=== PATIENT | male | born 1965 | race Hispanic/Latino ===

== ENCOUNTER 2018-08-18 16:21 | Inpatient (IN) ==
--- NOTE | 2018-08-18 16:40 | PDOC ---
Gen Adult / Medical Screen HPI - General Chief Complaint: General Medical Stated Complaint: DIZZY, FEELS WEIRD, NOT SLEEPING, DIARRHEA Date Seen by Provider: 08/18/18 Time Seen by Provider: 16:25 Source: POSITIVE: Patient, Spouse Exam Limitations: POSITIVE: No limitations Nurse's Notes Reviewed & Considered: Yes - Indicators Temperature Between 95 and 101 Degrees: Yes Respirations Between 12 and 20: Yes Blood Pressure Between 100-165 (sys) and 60-100 (lindsey): Yes Pulse Range Between 60-105 (100 for age > 60 years): Yes Severe Pain (Greater than 5/10 Reported): No Chest or Abdominal Pain: No Inability to Walk: No Pt Reports Active High Risk Cond. (TB/Hepatitis/HIV/Chemo): No Abnormal Mental Status: Yes (patient is confused and oriented to person and place) - History of Present Illness Initial Comments: This is a well-developed, well-nourished, 52-year-old male, who is originally f [facility], complaining of confusion, headache, chills and sweats, body aches, and a diabetic foot ulcer on his MTP joint first toe left foot. His foot ulcer he has been treating with [id number] medications for approximately one year according to my phone conversation with his . Patient has not been taking his metformin and 2 days ago his blood sugars were over 350. He began taking his metformin again and presents today with blood sugar of 198. Patient denies any sore throat, no chest pain or shortness of breath, no cough, no nausea or vomiting, but he does have diarrhea every other day. He denies any dysuria or hematuria. Patient is presently in [employer] working at the [employer] and he resides in [place]. Patient is lives in the [facility] approximately 20 years. Body Location Affected: REPORTS: Head Timing: REPORTS: Unknown Duration: Unknown Similar Symptoms Previously: No Recent Care Received: REPORTS: Denies Any Prior Injuries Related to Current Complaint?: No - Patient Home Medications Home Medications: Home Medications Ibuprofen [Advil] 400 mg PO PRN PRN 08/18/18 metFORMIN Tab [Glucophage Tab] 1,000 mg PO BID 08/18/18 - Patient Allergies Allergies/Adverse Reactions: Allergies Allergy/AdvReac Type Severity Reaction Status Date / Time No Known Allergies Allergy Verified 08/18/18 16:23 Past Medical History - heen HEENT History: Denies History Cardiovascular History: Denies History Respiratory History: Denies History Gastrointestinal History: Denies History Genitourinary History: Denies History Endocrine History: Type 2 Diabetes (oral) Musculoskeletal History: Arthritis, Gout Prosthesis or Implant: No Neurological History: Denies History Blood Disorders: Denies History Psychiatric History: Denies History Male Reproductive History: Denies History Cancer History: Denies History In Past Year Been Physically Harmed or Verbally Threatened: No History of MDRO: No Tobacco Use: Never Smoker In the Past 12 Months, Have Used or Abuse Any Substance: None Previous Surgical History: No Significant Family History: No pertinent family hx ROS - Limitations ROS Limitations: Mental Impairment (Patient is confused and unsure of timeline and chain of events that led him here to the emergency room. His indicates that his confusion has been increasing over the last several days.) Constitution: REPORTS: Chills, Diaphoresis Cardiovascular: REPORTS: Denies Cardiac Symptoms Respiratory: REPORTS: Denies Resp Symptoms Neurological: REPORTS: Confusion, Headache Gastrointestinal: REPORTS: Diarrhea Endocrine: REPORTS: Elevated Glucose Musculoskeletal: REPORTS: Joint Pain (Left first toe MTP joint with diabetic foot ulcer.), Muscle Aches Genitourinary: REPORTS: Denies Symptoms Eyes: REPORTS: Denies Symptoms ENT: REPORTS: Denies Symptoms Skin: REPORTS: Denies Skin Symptoms Lympathic: REPORTS: Denies Lympathic Symptoms Immunologic: POSITIVE: Denies Symptoms Psychiatric: POSITIVE: Confusion Gen Adult/Medical Screen Exam - General Appearance General Appearance: POSITIVE: Cooperative, No Acute Distress, No Evidence of Trauma, Lethargic - HEENT HEENT: POSITIVE: Head Inspection Nml, Eyes Inspection Nml, Ears Inspection Nml, Nose Inspection Nml, Oral/Dental Inspect. Nml, Pharynx Inspect. Nml, PERRL, EOMI - Pupils Pupil Size: 3 mm: Bilateral - Neck Neck: POSITIVE: Normal Inspection - Respiratory Respiratory: POSITIVE: No Respiratory Distress, Breath Sounds Normal, Chest Non- Tender - Cardiovascular Cardiovascular: POSITIVE: Regular Rate & Rhythm, No Murmur, No Gallop, PMI Normal Peripheral Pulses: Radial (L): 4+ - Abdomen Abdomen: Soft: (All Quadrants), Normal Bowel Sounds: (All Quadrants), Denies Tenderness: (All Quadrants), No Splenomegaly: (All Quadrants), No Hepatomegaly: (All Quadrants), No Guarding: (All Quadrants), No Rebound: (All Quadrants), No Palpable Pulse: (All Quadrants), No Palpabale Mass: (All Quadrants), No Diste ntion: (All Quadrants), No Rigidity: (All Quadrants) - Back Back: POSITIVE: Normal Inspection - Neurological / Psychological Mental Status: POSITIVE: Slow Response to Command Orientation: POSITIVE: Disoriented to Time Reflexes: Patellar (R): 3+, Patellar (L): 3+, Radial (R): 4+, Radial (L): 4+ - Skin Skin: POSITIVE: Normal Color, Warm, Dry, No Rash - Extremities Extremity: Non-Tender: (RUE), (LUE), (RLE), Normal ROM: (All Extremities), Normal Inspection: (RLE), (LUE), (RUE), Pelvis Stable: (All Extremities), Normal Tendon Exam: (All Extremities), Edema / Swelling: (LLE), Tender: (LLE), Signs / Symptoms of Infection Present: (LLE) (left first MTP joint), Erythema: (LLE), Joint Effusion: (LLE) Gen Adlt/Medical Scrn Progress - Results Reviewed by me Xrays/CTs/US Reviewed by me: Yes Discussed with Radiologist: Yes Lab Results Reviewed by Me: Yes CBC and BMP: 08/18/18 16:40 08/18/18 16:40 Lab Results:: Laboratory Results 08/18/18 08/18/18 08/18/18 16:40 16:40 16:40 WBC 6.71 RBC 5.58 Hgb 16.1 Hct 47.4 MCV 84.9 MCH 28.9 MCHC 34.0 RDW Std Deviation 39.7 RDW Coeff of Arturo 12.8 Plt Count 246 MPV 10.9 Immature Gran % (Auto) 0.1 Neut % (Auto) 63.0 Lymph % (Auto) 29.5 [place] % (Auto) 5.1 Eos % (Auto) 1.9 Baso % (Auto) 0.4 Immature Gran # (Auto) 0.01 Neut # (Auto) 4.22 Lymph # (Auto) 1.98 [place] # (Auto) 0.34 Eos # (Auto) 0.13 Baso # (Auto) 0.03 WBC Morphology Comment Normal morphology Plt Morphology Comment Normal morphology RBC Morph Comment Normal morphology VBG pH VBG pCO2 VBG HCO3 VBG Base Excess Sodium 138 Potassium 4.2 Chloride 105 Carbon Dioxide 23 Anion Gap 10 BUN 28 H Creatinine 1.2 Estimated GFR > 60 BUN/Creatinine Ratio 23.33 H Glucose 174 H Mean Blood Glucose 253.660 Hemoglobin A1c 10.20 H Calculated Osmolality 295.0 H Lactic Acid Uric Acid Calcium 9.4 Magnesium 1.7 Total Bilirubin 0.6 AST 51 ALT 49 Alkaline Phosphatase 61 C-Reactive Protein < 0.5 NT-Pro-B Natriuret Pep 18.4 Total Protein 7.6 Albumin 4.6 Globulin 3.0 Albumin/Globulin Ratio 1.50 Ur Collection Type Urine Color Urine Clarity Urine pH Ur Specific [place] Urine Protein Urine Glucose (UA) Urine Ketones Urine Occult Blood Urine Nitrate Urine Bilirubin Urine Urobilinogen Ur Leukocyte Esterase Ur Culture Indicated? 08/18/18 08/18/18 08/18/18 16:40 16:40 17:02 WBC RBC Hgb Hct MCV MCH MCHC RDW Std Deviation RDW Coeff of Arturo Plt Count MPV Immature Gran % (Auto) Neut % (Auto) Lymph % (Auto) [place] % (Auto) Eos % (Auto) Baso % (Auto) Immature Gran # (Auto) Neut # (Auto) Lymph # (Auto) [place] # (Auto) Eos # (Auto) Baso # (Auto) WBC Morphology Comment Plt Morphology Comment RBC Morph Comment VBG pH 7.37 VBG pCO2 42 L VBG HCO3 24 VBG Base Excess -1 Sodium Potassium Chloride Carbon Dioxide Anion Gap BUN Creatinine Estimated GFR BUN/Creatinine Ratio Glucose Mean Blood Glucose Hemoglobin A1c Calculated Osmolality Lactic Acid 0.8 Uric Acid 11.7 H Calcium Magnesium Total Bilirubin AST ALT Alkaline Phosphatase C-Reactive Protein NT-Pro-B Natriuret Pep Total Protein Albumin Globulin Albumin/Globulin Ratio Ur Collection Type Urine Color Urine Clarity Urine pH Ur Specific [place] Urine Protein Urine Glucose (UA) Urine Ketones Urine Occult Blood Urine Nitrate Urine Bilirubin Urine Urobilinogen Ur Leukocyte Esterase Ur Culture Indicated? 08/18/18 17:47 WBC RBC Hgb Hct MCV MCH MCHC RDW Std Deviation RDW Coeff of Arturo Plt Count MPV Immature Gran % (Auto) Neut % (Auto) Lymph % (Auto) [place] % (Auto) Eos % (Auto) Baso % (Auto) Immature Gran # (Auto) Neut # (Auto) Lymph # (Auto) [place] # (Auto) Eos # (Auto) Baso # (Auto) WBC Morphology Comment Plt Morphology Comment RBC Morph Comment VBG pH VBG pCO2 VBG HCO3 VBG Base Excess Sodium Potassium Chloride Carbon Dioxide Anion Gap BUN Creatinine Estimated GFR BUN/Creatinine Ratio Glucose Mean Blood Glucose Hemoglobin A1c Calculated Osmolality Lactic Acid Uric Acid Calcium Magnesium Total Bilirubin AST ALT Alkaline Phosphatase C-Reactive Protein NT-Pro-B Natriuret Pep Total Protein Albumin Globulin Albumin/Globulin Ratio Ur Collection Type Clean catch urine Urine Color Yellow Urine Clarity Clear Urine pH 5.5 Ur Specific [place] 1.015 Urine Protein Negative Urine Glucose (UA) Negative Urine Ketones 15 Urine Occult Blood Negative Urine Nitrate Negative Urine Bilirubin Negative Urine Urobilinogen 0.2 Ur Leukocyte Esterase Negative Ur Culture Indicated? Culture not set - Patient's Progress Pain Medication Addressed: POSITIVE: Yes Re-Examine Time: 19:30 Status: POSITIVE: Improved - Consult Consult (If Yes, Name of Consulting MD & Time Called): Yes (Dr Borrego 1915hrs, Dr Wilkes 1920hrs, Dr. Souza, 1845hrs.) Consulting MD will see pt:: POSITIVE: [facility] Admit Counseled: POSITIVE: Patient, Family, RE: Lab Results, RE: Radiology Results, RE: DX, RE: Need for F/U Patient Care Time - Estimated PCT Patient Care Time (In Minutes): 60 Vital Signs - Recent Vital Signs Vital Signs: Vital Signs (Last 8 hours) Temp Pulse Resp BP Pulse Ox 08/18/18 16:22 97.6 F 77 18 125/77 96 - VS Reviewed Vital Signs Reviewed: Yes Discharge Clinical Impression: Wound infection, Gout, Hyperglycemia Discharge Disposition: Admit to Inpatient Condition: Stable Follow Up With: NONE,NONE [Primary Care Provider] - Date Decision to Admit to Inpatient: 08/18/18 Time Decision to Admit to Inpatient: 19:31
[2018-08-18] MEDS ORDERED: KETOROLAC 15 MG/1 ML VIAL IVP ONE (16:49)
[2018-08-18] MEDS ORDERED: ONDANSETRON 4 MG/2 ML VIAL IVP ONE (16:49)
[2018-08-18] MEDS ORDERED: Sodium Chloride 0.9% 1,000 ML PRIMARY IV ONE (16:49)
[2018-08-18 16:59] LABS: BASOPHILS # (AUTO) 0.03 10*3/UL; BASOPHILS % (AUTO) 0.4 % (0-1); EOSINOPHILS # (AUTO) 0.13 10*3/UL; EOSINOPHILS % (AUTO) 1.9 % (0-8); Hematocrit [HCT] 47.4 % (42.0-52.0); Hemoglobin [HGB] 16.1 g/dL (14.0-18.0); LYMPHOCYTES # (AUTO) 1.98 10*3/uL; MEAN CORPUSCULAR HEMOGLOBIN 28.9 PG (27-31); MEAN CORPUSCULAR VOLUME 84.9 FL (80-90); MEAN PLATELET VOLUME 10.9 FL (7.4-12.2); MONOCYTES # (AUTO) 0.34 10*3/UL (0.3-0.8); MONOCYTES % (AUTO) 5.1 % (5-15); NEUTROPHILS # (AUTO) 4.22 10*3/UL; RED BLOOD COUNT 5.58 10^6/uL (4.70-6.10)
[2018-08-18 17:08] LABS: VENOUS PH 7.37 (7.32-7.42)
[2018-08-18 17:09] LABS: BLOOD UREA NITROGEN 28 mg/dL (7-22); BUN/CREATININE RATIO 23.33 (6-20); SERUM ALBUMIN 4.6 g/dL (3.5-4.8)
--- NOTE | 2018-08-18 17:33 | DI ---
CT HEAD SCAN WITHOUT IV CONTRAST, 08/18/2018 4:49 PM : Clinical History: Confusion. Previous Exam: None at this facility. Technique: Performed from the foramen magnum to vertex without IV contrast. Contrast Volume: None. 4th Ventricle: Normal. 3rd Ventricle: Normal for age. Lateral Ventricles: Normal for age. Cerebrum: Normal. No acute hemorrhagic or bland infarct. Cerebellum: Normal. No cerebellopontine angle mass. Brainstem: Normal. Atrophy: Mild cerebellar and cerebral atrophy. Extracerebral Mantles/Midline Shift: No extracerebral mantle or dural lesion. No midline shift. Sinuses: Normal. Skull: Intact. READIN. No evidence of an acute hemorrhagic or bland infarct or other parenchymal abnormality. 2. Mild cerebellar and cerebral atrophy.
[2018-08-18 17:40] LABS: PLATELET MORPHOLOGY COMMENT NORMAL MORPHOLOGY (NORM); RBC MORPHOLOGY COMMENT NORMAL MORPHOLOGY (NORM); WBC MORPHOLOGY COMMENT NORMAL MORPHOLOGY (NORM)
--- NOTE | 2018-08-18 17:41 | DI ---
PA /LATERAL CHEST, 08/18/2018 4:49 PM : Clinical History: Chills. Sweats. Previous Exam: None at this facility. Soft Tissues: No acute soft tissue or bony abnormality. Heart: Normal heart. Lungs: No infiltrate or effusion. Mediastinum: Normal mediastinum. Nodules: No pulmonary nodules. Bones: Normal. Reading: Normal chest x-ray.
[2018-08-18] MEDS ORDERED: MECLIZINE 25 MG CHEWABLE TABLET PO ONE (18:07)
--- NOTE | 2018-08-18 18:13 | DI ---
LEFT FOOT, 08/18/2018 4:49 PM: Clinical History: wound infection MTP 1st toe Comparison Study: None at this facility. Views: 3 views. Soft Tissues: There is soft tissue swelling over the medial side of the foot at the first metatarsoph alangeal joint. No radiopaque foreign body or soft tissue gas is present. Joints: There is complete obliteration of the first metatarsal phalangeal joint space. The remaining joint spaces are intact. Bone: No fracture or dislocation. Erosive changes have developed in the distal head of the first meta tarsal bone medially and laterally as well as in the lateral margin of the base of the proximal phala nx of the first toe. There are some soft tissue calcifications at the site of the erosions and tophac eous gout cannot be excluded. On the AP projection, periosteal new bone formation is present on the m edial surface of the proximal phalanx of the great toe. Erosive changes are present in the medial ant e of the distal head of the proximal phalanx of the great toe. Subchondral cystic change is present i n the base of the proximal phalanx of the second toe. The remainder of the foot exam is unremarkable. Readin. Soft tissue swelling medial to the first metatarsophalangeal joint in that joint shows complete o bliteration of the joint space. Erosive changes with suggestion of "overhanging" edges are present in the first metatarsophalangeal joint and these erosive changes show some soft tissue calcifications. Tophaceous gout cannot be excluded. 2. Periosteal new bone formation is present in the medial surface of the proximal phalanx of the gre at toe without evidence of a definite fracture. In view of the history of a wound infection, osteomye litis must also be considered.
[2018-08-18 18:53] LABS: BILIRUBIN,URINE NEGATIVE (NEG); CLARITY,URINE CLEAR (CLEAR); COLOR,URINE YELLOW (Y); GLUCOSE, URINE (UA) NEGATIVE (NEG); OCCULT BLOOD,URINE NEGATIVE (NEG); PH,URINE 5.5 (5.0-8.5); PROTEIN,URINE NEGATIVE (NEG); UROBILINOGEN,URINE 0.2 EU/dL (0.2)
[2018-08-18 18:54] LABS: URINE SAMPLE TYPE CLEAN CATCH URINE
[2018-08-18] MEDS ORDERED: cefTRIAXone Inj 2 GM in Sodium Chloride 0.9% 100 ML IV ONE (18:59)
[2018-08-18] MEDS ORDERED: DOCUSATE 100 MG CAPSULE PO PRN (21:00)
[2018-08-18] MEDS ORDERED: Lactated Ringers 1,000 ML PRIMARY IV SCH (21:00)
[2018-08-18] MEDS ORDERED: ACETAMINOPHEN 325 MG TABLET PO PRN (21:00)
[2018-08-18] MEDS ORDERED: ONDANSETRON 4 MG/2 ML VIAL IVP PRN (21:00)
[2018-08-18] MEDS ORDERED: CALCIUM CARBONATE 500 MG (TUMS) CHEWABLE TABLET PO PRN (21:00)
--- NOTE | 2018-08-18 21:00 | PDOC ---
HPI - History of Present Illness Date of Service: 08/18/18 Time of Service: 21:00 Chief Complaint: Feel dizzy, headaches, somewhat confused last few days. History of Present Illness: This is a 52 years old male with medical history significant for history of diabetes for 10 years, gout and foot ulcer developed about a year ago who presented to the ER complaining from headache, dizziness and he was somewhat confused according to him because of that he came into the ER. He said maybe had some temperature but he didn't check the temperature. He denied pain in the foot. There is no drainage. He had multiple tests done in the ER including a CT of the head which was negative, chest x-ray which was negative, labs which showed an elevated A1c at 10, the ER physician was concerned about infection after he had an x-ray of the foot which showed new bone formation cannot exclude osteomyelitis in addition to overhanging edge of the first metatarsophalangeal joint. This was discussed with both Dr. Borrego and the infectious disease in [place]. Infectious disease recommended antibiotics and he received Rocephin . Dr. Mittal recommended a MRI of the foot and admission. Currently the patient said he feels better he is denying dizziness lightheadedness and things are clear in his head according to him. There is no vomiting but he did mention that if he takes metformin he would have diarrhea so he takes it only at night. At times it sounded like he skips the medication. He said his machine broke and the last time he just blood sugar sugar was a week ago, prior to that he was getting numbers in the 300-400 range Past Medical History Medical History: 1. Diabetes for 10 years looks like complicated by neuropathy. 2. History of gout. 3. History of foot ulcer that was infected and he was treated with antibiotics for 3 months. Surgical History: No significant history Family History: Reviewed an Not Pertinent Past Social History: Does not smoke, does not drink, no drugs. He works here at [employer] he said. He is originally [place] but lives currently in [place] and he's been working here for the last 2 months. Tobacco Use: Never Smoker In the Past 12 Months, Have Used or Abuse Any of the Following Substance: None Alcohol Use: None Medication / Allergies Home Medications: Home Medications Medication Instructions Recorded Confirmed Type Ibuprofen [Advil] 400 mg PO PRN PRN 08/18/18 08/18/18 History metFORMIN Tab [Glucophage Tab] 1,000 mg PO BID 08/18/18 08/18/18 History Allergies/Adverse Reactions: Allergies Allergy/AdvReac Type Severity Reaction Status Date / Time No Known Allergies Allergy Verified 08/19/18 06:57 Review of Systems - Review of Systems All Systems: Reviewed & No Additional Complaints Except as Stated Exam - Vitals Vital Signs: Vital Signs Temperature 97.2 F Temperature Source Temporal Artery Scan Pulse Rate [Pulse Oximeter 77 Right] Pulse Rate 65 Respiratory Rate 18 Blood Pressure [Left Arm] 125/77 Blood Pressure 123/87 Pulse Ox 95 Oxygen Delivery Method Room Air Height 5 ft 11 in Weight 200 lb - General General Appearance: No Acute Distress, Cooperative, Obese - Head Head Exam: Normal Inspection - Eye Eye Exam: POSITIVE: Normal Appearance - ENT ENT Exam: POSITIVE: Normal Exam - Neck Neck Exam: Normal Inspection - Respiratory Respiratory Exam: POSITIVE: Clear to Auscultation - Bilaterally - Cardiovascular Cardiovascular Exam: POSITIVE: RRR - GI/Abdominal GI/Abdominal Exam: POSITIVE: Normal Bowel Sounds, Non Tender, Non Distended, Soft, No Organomegaly - Rectal Rectal Exam: POSITIVE: Deferred - External Exam: POSITIVE: Deferred - Extremities Additional Extremities Exam Details: There is no edema. Adequate pulses present. There is some soft tissue swelling on the medial aspect of the left foot at the base of the big toe. 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 There is a an opening in the middle of it the etc. dry. There is no tenderness. Results - Labs CBC and BMP: 08/19/18 04:30 08/19/18 04:30 - Imaging Status: Report Reviewed by Me (Chest X ray Normal chest x-ray. Foot X ray 1. Soft tissue swelling medial to the first metatarsophalangeal joint in that joint shows complete obliteration of the joint space. Erosive changes with suggestion of "overhanging" edges are present in the first metatarsophalangeal joint and these erosive changes show some soft tissue calcifications. Tophaceous gout cannot be excluded. 2. Periosteal new bone formation is present in the medial surface of the proximal phalanx of the great toe without evidence of a definite fracture. In view of the history of a wound infection, osteomyelitis must also be considered. 3. CT head 1. No evidence of an acute hemorrhagic or bland infarct or other parenchymal abnormality. 2. Mild cerebellar and cerebral atrophy.) Assessment and Plan - Patient Problems (1) Diabetes Current Visit: Yes Status: Acute Comment: His blood sugars not controlled well. He said the he skip the metformin because of diarrhea. He never tried any other medication before. I think we'll try putting him on glipizide and see whether that would help control his blood sugar. 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 I think the x-ray is showing chronic gout changes. But will do an MRI of the foot tomorrow as per my discussion with Dr. Borrego. I think we'll hold off on antibiotics as CRP is normal. May need a uric acid lowering therapy but can be done as an outpatient. Code(s): Z87.39 - Personal history of other diseases of the musculoskeletal system and connective tissue (3) Dizziness Current Visit: Yes Status: Acute Comment: I think maybe he was somewhat dehydrated. With his history of uncontrolled diabetes and the diarrhea at times. He seems to be improved with the fluid will give him another liter of fluid and then will saline lock him. Code(s): R42 - Dizziness and giddiness
[2018-08-18] MEDS ORDERED: GlipiZIDE Tab 5 MG TABLET PO ONE (22:13)
[2018-08-19 04:49] LABS: BASOPHILS # (AUTO) 0.02 10*3/UL; BASOPHILS % (AUTO) 0.5 % (0-1); EOSINOPHILS # (AUTO) 0.13 10*3/UL; EOSINOPHILS % (AUTO) 3.3 % (0-8); Hematocrit [HCT] 44.3 % (42.0-52.0); Hemoglobin [HGB] 14.7 g/dL (14.0-18.0); MEAN CORPUSCULAR HEMOGLOBIN 28.6 PG (27-31); MEAN CORPUSCULAR HGB CONC 33.2 g/dL (33-37); MEAN CORPUSCULAR VOLUME 86.2 FL (80-90); MEAN PLATELET VOLUME 10.9 FL (7.4-12.2); MONOCYTES # (AUTO) 0.25 10*3/UL (0.3-0.8); MONOCYTES % (AUTO) 6.3 % (5-15); NEUTROPHILS # (AUTO) 1.65 10*3/UL; NEUTROPHILS % (AUTO) 41.6 % (50-80); RED BLOOD COUNT 5.14 10^6/uL (4.70-6.10)
[2018-08-19 05:07] LABS: PLATELET MORPHOLOGY COMMENT NORMAL MORPHOLOGY (NORM); RBC MORPHOLOGY COMMENT NORMAL MORPHOLOGY (NORM); WBC MORPHOLOGY COMMENT NORMAL MORPHOLOGY (NORM)
[2018-08-19 05:09] LABS: BLOOD UREA NITROGEN 23 mg/dL (7-22)
--- NOTE | 2018-08-19 10:48 | DCSUMMARY ---
Hospitalization Summary Admit Date: 08/18/2018 Discharge Date: 08/19/18 Primary Diagnosis:: resolved dizziness Secondary Diagnosis:: Tophaceous gout, poorly controlled diabetes type II Hospital Course: The very pleasant 52-year-old male originally from [place] but living in [place] for the last 20 years and working here for the short-term. He should be here through next weekend and then be going home according to his story. He was admitted after presenting with some dizziness. It was presumed that he might have a possible left great toe infection, and there are gram-positive cocci on skin culture although there is no evidence of infection on physical examination, or MRI scan. The patient does not have any systemic symptoms of infection. It looks as if this is tophaceous gout. His uric acid is quite elevated. He has poorly controlled diabetes, but cannot take metformin due to significant diarrhea. He has been missing doses because of the diarrhea. He is agreeable to trying glipizide therapy and I did discuss that it has some hypoglycemia side effects in some patients and we will arrange for glucose monitor for him to check his blood sugars. We will place him on allopurinol to help with uric acid and help prevent acute gouty flares. We discussed side effects of allopurinol and potential adverse effects and when to stop it. Dizziness symptoms completely resolved. We also discussed making sure that he follow-up with his primary physician to recheck his diabetes, with consideration for insulin therapy if there is no improvement in hemoglobin A1c in the next few months. We discussed monitoring gout therapy as well. Patient would like to return to work and I see no reason to restrict his work. I did ask him to check his feet nightly to make sure there is no redness or evidence of infection. He states that he often treats locally with alcohol, covers with bandages to reduce pressure, and soaks in Epsom salts and I think that's all reasonable for now. No complains of chest pain, shortness breath, nausea or vomiting, or dizziness today. The patient would like to go home. He had a family member on the phone and she agreed with the plan as well. Assessment and Plan: 1. As per discharge assessments noted 2. Disposition: Patient is discharged home. 3. Condition on discharge, stable and improved. 4. Diet: regular diet 5. Activities: resume normal activities 6. Follow-Up: 1. See primary care physician upon return to [place] in the next week 2. 7. Medications at the Time of Discharge: Home Medications Medication Instructions Recorded Confirmed Type Ibuprofen [Advil] 400 mg PO PRN PRN 08/18/18 08/18/18 History Allopurinol 100 mg PO DAILY #30 tab 08/19/18 Rx glipiZIDE ER Tab [Glucotrol XL 5 mg PO AC BK #30 tab 08/19/18 Rx Tab] 8. Time, care, counseling and coordination of care for this discharge is greater than 30 minutes. Exam - Vitals Vital Signs: Vital Signs Temperature 97 F Temperature Source Oral Pulse Rate [Pulse Oximeter 60 Right] Pulse Rate 65 Respiratory Rate 16 Blood Pressure [Left Arm] 122/83 Blood Pressure 123/87 Pulse Ox 97 Oxygen Delivery Method Room Air Height 5 ft 11 in Weight 206 lb 12.8 oz - General General Appearance: No Acute Distress, Cooperative - Eye Eye Exam: POSITIVE: No Scleral Icterus - ENT ENT Exam: POSITIVE: Mucous Membranes Moist - Respiratory Respiratory Exam: POSITIVE: Clear to Auscultation - Bilaterally, Breathing Non Labored - Cardiovascular Cardiovascular Exam: POSITIVE: RRR, No Murmur, No Clicks, No Gallops, No Rubs, No JVD - GI/Abdominal GI/Abdominal Exam: POSITIVE: Normal Bowel Sounds, Non Tender, Non Distended, Soft - Extremities Extremities Exam: POSITIVE: No Clubbing Present, No Edema Present, No Cyanosis Present Additional Extremities Exam Details: There is no tenderness along the lateral aspect of the left great toe. There is some skin breakdown, but no ulceration, there is no drainage, there is no erythema, there is no tenderness to palpation. Dorsalis pedis pulses intact. - Neurological Neurological Exam: POSITIVE: Alert, Oriented x 3, No Facial Droop, Speech Intact / Clear, Moves All Extremities Equally - Psychiatric Psychiatric Exam: POSITIVE: Normal Affect, Normal Mood Data Peritnent Studies: Laboratory Results 08/18/18 08/18/18 08/18/18 16:40 16:40 16:40 WBC 6.71 RBC 5.58 Hgb 16.1 Hct 47.4 MCV 84.9 MCH 28.9 MCHC 34.0 RDW Std Deviation 39.7 RDW Coeff of Arturo 12.8 Plt Count 246 MPV 10.9 Immature Gran % (Auto) 0.1 Neut % (Auto) 63.0 Lymph % (Auto) 29.5 [place] % (Auto) 5.1 Eos % (Auto) 1.9 Baso % (Auto) 0.4 Immature Gran # (Auto) 0.01 Neut # (Auto) 4.22 Lymph # (Auto) 1.98 [place] # (Auto) 0.34 Eos # (Auto) 0.13 Baso # (Auto) 0.03 WBC Morphology Comment Normal morphology Plt Morphology Comment Normal morphology RBC Morph Comment Normal morphology VBG pH VBG pCO2 VBG HCO3 VBG Base Excess Sodium 138 Potassium 4.2 Chloride 105 Carbon Dioxide 23 Anion Gap 10 BUN 28 H Creatinine 1.2 Estimated GFR > 60 BUN/Creatinine Ratio 23.33 H Glucose 174 H Mean Blood Glucose 253.660 Hemoglobin A1c 10.20 H Calculated Osmolality 295.0 H Lactic Acid Uric Acid Calcium 9.4 Magnesium 1.7 Total Bilirubin 0.6 AST 51 ALT 49 Alkaline Phosphatase 61 C-Reactive Protein < 0.5 NT-Pro-B Natriuret Pep 18.4 Total Protein 7.6 Albumin 4.6 Globulin 3.0 Albumin/Globulin Ratio 1.50 Ur Collection Type Urine Color Urine Clarity Urine pH Ur Specific [place] Urine Protein Urine Glucose (UA) Urine Ketones Urine Occult Blood Urine Nitrate Urine Bilirubin Urine Urobilinogen Ur Leukocyte Esterase Ur Culture Indicated? 08/18/18 08/18/18 08/18/18 16:40 16:40 17:02 WBC RBC Hgb Hct MCV MCH MCHC RDW Std Deviation RDW Coeff of Arturo Plt Count MPV Immature Gran % (Auto) Neut % (Auto) Lymph % (Auto) [place] % (Auto) Eos % (Auto) Baso % (Auto) Immature Gran # (Auto) Neut # (Auto) Lymph # (Auto) [place] # (Auto) Eos # (Auto) Baso # (Auto) WBC Morphology Comment Plt Morphology Comment RBC Morph Comment VBG pH 7.37 VBG pCO2 42 L VBG HCO3 24 VBG Base Excess -1 Sodium Potassium Chloride Carbon Dioxide Anion Gap BUN Creatinine Estimated GFR BUN/Creatinine Ratio Glucose Mean Blood Glucose Hemoglobin A1c Calculated Osmolality Lactic Acid 0.8 Uric Acid 11.7 H Calcium Magnesium Total Bilirubin AST ALT Alkaline Phosphatase C-Reactive Protein NT-Pro-B Natriuret Pep Total Protein Albumin Globulin Albumin/Globulin Ratio Ur Collection Type Urine Color Urine Clarity Urine pH Ur Specific [place] Urine Protein Urine Glucose (UA) Urine Ketones Urine Occult Blood Urine Nitrate Urine Bilirubin Urine Urobilinogen Ur Leukocyte Esterase Ur Culture Indicated? 08/18/18 08/19/18 08/19/18 17:47 04:30 04:30 WBC 3.96 L RBC 5.14 Hgb 14.7 Hct 44.3 MCV 86.2 MCH 28.6 MCHC 33.2 RDW Std Deviation 39.8 RDW Coeff of Arturo 12.9 Plt Count 225 MPV 10.9 Immature Gran % (Auto) 0.3 Neut % (Auto) 41.6 L Lymph % (Auto) 48.0 [place] % (Auto) 6.3 Eos % (Auto) 3.3 Baso % (Auto) 0.5 Immature Gran # (Auto) 0.01 Neut # (Auto) 1.65 Lymph # (Auto) 1.90 [place] # (Auto) 0.25 L Eos # (Auto) 0.13 Baso # (Auto) 0.02 WBC Morphology Comment Normal morphology Plt Morphology Comment Normal morphology RBC Morph Comment Normal morphology VBG pH VBG pCO2 VBG HCO3 VBG Base Excess Sodium 142 Potassium 4.1 Chloride 109 Carbon Dioxide 25 Anion Gap 8 BUN 23 H Creatinine 1.0 Estimated GFR > 60 BUN/Creatinine Ratio 23.00 H Glucose 96 Mean Blood Glucose Hemoglobin A1c Calculated Osmolality 297.0 H Lactic Acid Uric Acid Calcium 8.8 Magnesium Total Bilirubin AST ALT Alkaline Phosphatase C-Reactive Protein NT-Pro-B Natriuret Pep Total Protein Albumin Globulin Albumin/Globulin Ratio Ur Collection Type Clean catch urine Urine Color Yellow Urine Clarity Clear Urine pH 5.5 Ur Specific [place] 1.015 Urine Protein Negative Urine Glucose (UA) Negative Urine Ketones 15 Urine Occult Blood Negative Urine Nitrate Negative Urine Bilirubin Negative Urine Urobilinogen 0.2 Ur Leukocyte Esterase Negative Ur Culture Indicated? Culture not set Patient Problems - Patient Problem List (1) Tophaceous gout Current Visit: Yes Status: Chronic Code(s): M1A.9XX1 - Chronic gout, unspecified, with tophus (tophi) Category: Medical (2) Diabetes Current Visit: Yes Status: Acute Code(s): E11.9 - Type 2 diabetes mellitus without complications Qualifiers: Diabetes mellitus type: type 2 Diabetes mellitus ad terminal makeup operator insulin use: without custodial use Diabetes mellitus complication status: without complication Qualified Code(s): E11.9 - Type 2 diabetes mellitus without complications Category: Medical (3) Dizziness Current Visit: Yes Status: Resolved Comment: Dizziness has resolved. Code(s): R42 - Dizziness and giddiness Category: Medical
--- NOTE | 2018-08-19 16:57 | DI ---
MRI LEFT FOOT SCAN, 08/19/2018 7:00 AM: Clinical History: Left foot ulcer. Plain films of the foot Previous Exam: None at this facility. Technique: Axial, coronal, and sagittal PDW and fat saturated PD. There is no soft tissue edema. The only focus of increased signal intensity involves the medial and d istal portion of the distal head of the first metatarsal bone comprising a volume measuring roughly 4 x 4 by 6 mm relatively well-circumscribed. This would be atypical for hyperintensity related to oste omyelitis. The remainder of the first metatarsal bone and the other bones show no marrow edema. As no ye on the plain films, erosive changes are present in the dorsomedial surface of the distal head of the first metatarsal bone as well as on the dorsal surface of the base of the proximal phalanx of the great toe. Connecting these 2 erosive components is a soft tissue mass that is hypointense on the T1 -weighted sequences and is inhomogeneously and slightly increased in signal intensity. This soft tiss ue mass is well-circumscribed. The margins of the eroded bone show decreased signal indicating sclero sis. There is a similar mass present along the medial aspect of the distal head of the first metatars al bone. These changes are consistent with tophaceous gout, and the hyperintensity probably is second shawn to degenerative arthritis. Similar but earlier changes are suspected at the second and third meta tarsophalangeal joints. There is a small 4 mm fluid collection over the dorsal medial aspect of the f ifth metatarsophalangeal joint and this may represent a small ganglion cyst. The flexor and extensor tendons and the signal intensity in the muscles are normal. Readin. The soft tissue findings and erosive changes involving the first metatarsophalangeal joint repres ent tophaceous gout. No evidence of osteomyelitis is noted. 2. There may be the beginning of gouty arthropathy at the second and third metatarsophalangeal joint s. 3. Probable ganglion cyst of the fifth metatarsophalangeal joint.
--- NOTE | 2018-08-19 18:29 | CONSULT ---
Consult Note - Consult Consult Date: 08/18/18 Reason for Consult: Orthopedic Consult Requesting Physician: Dr. Chiu Primary Care Provider: NONE NONE - History of Present Illness History of Present Illness: Patient is a 52-year-old male who came to the emergency room this evening with fever or disorientation chills and feeling very sick. Patient is diabetic has not been checking his blood sugars andthey have been running high. Patient also notes that on his left foot he has had apparently some drainage of we'll possibly is a Crystal Parmjit type material over a period of a year states that it opens up to some degree some of this material come out it'll heal over to some degree but then I will open back up again. He's been doing this for a year. Coming in today for evaluation because he is very sick and concerned. Patient does note that he has a long history of gout as well as his diabetes. Past Medical History Medical History: 1. Diabetes for 10 years looks like complicated by neuropathy. 2. History of gout. 3. History of foot ulcer that was infected and he was treated with antibiotics for 3 months. Surgical History: No significant history Family History: Reviewed an Not Pertinent Past Social History: Does not smoke, does not drink, no drugs. He works here at [employer] he said. He is originally [place] but lives currently in [place] and he's been working here for the last 2 months. Tobacco Use: Never Smoker In the Past 12 Months, Have Used or Abuse Any of the Following Substance: None Alcohol Use: None Medication / Allergies Home Medications: Home Medications Medication Instructions Recorded Confirmed Type Ibuprofen [Advil] 400 mg PO PRN PRN 08/18/18 08/18/18 History Allopurinol 100 mg PO DAILY #30 tab 08/19/18 Rx glipiZIDE ER Tab [Glucotrol XL 5 mg PO AC BK #30 tab 08/19/18 Rx Tab] Allergies/Adverse Reactions: Allergies Allergy/AdvReac Type Severity Reaction Status Date / Time No Known Allergies Allergy Verified 08/19/18 06:57 Exam - - Exam: Examination of the patient's left foot shows that he has what is pretty good motion of his ankle dorsiflexion to about 10 plantar flexion about 60 inversion eversion about 25 reasonable toe motion to the big toe which is stiff and with movement he has some discomfort. I'll looking at an area where he has a Band- Aid covering from what was termed an ulcer is really may be a a few millimeters by few millimeters area of skin discoloration but with manipulation and movement of the area and tried to express something nothing comes out of this area and it looks like the skin is completely covering this area except for very superficial area of this great toe which is along the dorsal medial aspect of the first MTP joint patient also feels like there is a possible tophus over the second and third metatarsal phalangeal joint region. There is a little pain with palpation over the first MTP joint region but very mild. There is some generalized discoloration to the skin consistent with venous stasis changes bilaterally. Otherwise is no area of breakdown to the feet several areas on the ball of the foot and the heel with callus formation but no areas of breakdown active drainage no fluctuance no adenopathy. Patient with some decreased sensation along the foot region bilaterally with neurogenic has had symptoms consistent with peripheral neuropathy. Patient with brisk refill. Radiographs of the foot show some rather chronic destructive changes of the first MTP joint region which are periarticular almost look like a gouty process and with a tophus that appears to be on the dorsal aspect of the foot I think that this is most likely a gout changes. No clear evidence of osteomyelitis,soft tissue gasses. - Vitals Vital Signs: Vital Signs Temperature 98.2 F Temperature Source Oral Pulse Rate [Pulse Oximeter 63 Right] Pulse Rate 65 Respiratory Rate 20 Blood Pressure [Left Arm] 120/82 Blood Pressure 123/87 Pulse Ox 95 Oxygen Delivery Method Room Air Height 5 ft 11 in Weight 93.803 kg Results - Labs CBC and BMP: 08/19/18 04:30 08/19/18 04:30 Additional Lab Results: Laboratory Results 08/18/18 08/18/18 08/19/18 16:40 17:47 04:30 WBC 3.96 L RBC 5.14 Hgb 14.7 Hct 44.3 MCV 86.2 MCH 28.6 MCHC 33.2 RDW Std Deviation 39.8 RDW Coeff of Arturo 12.9 Plt Count 225 MPV 10.9 Immature Gran % (Auto) 0.3 Neut % (Auto) 41.6 L Lymph % (Auto) 48.0 [place] % (Auto) 6.3 Eos % (Auto) 3.3 Baso % (Auto) 0.5 Immature Gran # (Auto) 0.01 Neut # (Auto) 1.65 Lymph # (Auto) 1.90 [place] # (Auto) 0.25 L Eos # (Auto) 0.13 Baso # (Auto) 0.02 WBC Morphology Comment Normal morphology Plt Morphology Comment Normal morphology RBC Morph Comment Normal morphology Sodium Potassium Chloride Carbon Dioxide Anion Gap BUN Creatinine Estimated GFR BUN/Creatinine Ratio Glucose Calculated Osmolality Uric Acid 11.7 H Calcium Ur Collection Type Clean catch urine Urine Color Yellow Urine Clarity Clear Urine pH 5.5 Ur Specific [place] 1.015 Urine Protein Negative Urine Glucose (UA) Negative Urine Ketones 15 Urine Occult Blood Negative Urine Nitrate Negative Urine Bilirubin Negative Urine Urobilinogen 0.2 Ur Leukocyte Esterase Negative Ur Culture Indicated? Culture not set 08/19/18 04:30 WBC RBC Hgb Hct MCV MCH MCHC RDW Std Deviation RDW Coeff of Arturo Plt Count MPV Immature Gran % (Auto) Neut % (Auto) Lymph % (Auto) [place] % (Auto) Eos % (Auto) Baso % (Auto) Immature Gran # (Auto) Neut # (Auto) Lymph # (Auto) [place] # (Auto) Eos # (Auto) Baso # (Auto) WBC Morphology Comment Plt Morphology Comment RBC Morph Comment Sodium 142 Potassium 4.1 Chloride 109 Carbon Dioxide 25 Anion Gap 8 BUN 23 H Creatinine 1.0 Estimated GFR > 60 BUN/Creatinine Ratio 23.00 H Glucose 96 Calculated Osmolality 297.0 H Uric Acid Calcium 8.8 Ur Collection Type Urine Color Urine Clarity Urine pH Ur Specific [place] Urine Protein Urine Glucose (UA) Urine Ketones Urine Occult Blood Urine Nitrate Urine Bilirubin Urine Urobilinogen Ur Leukocyte Esterase Ur Culture Indicated? Vital Signs (24 hrs) 08/18/18 20:10 08/18/18 21:11 08/19/18 01:00 Temperature 97.2 F 97.0 F 97.3 F Pulse Rate 65 Pulse Rate [Pulse Oximeter Right] 77 68 Respiratory Rate 18 24 20 Blood Pressure 123/87 Blood Pressure [Left Arm] 127/83 111/70 Pulse Ox 95 93 96 08/19/18 04:29 08/19/18 07:00 08/19/18 07:20 Temperature 97.2 F 97 F Pulse Rate Pulse Rate [Pulse Oximeter Right] 58 L 60 60 Respiratory Rate 20 16 Blood Pressure Blood Pressure [Left Arm] 103/64 122/83 Pulse Ox 94 97 08/19/18 11:15 Temperature 98.2 F Pulse Rate Pulse Rate [Pulse Oximeter Right] 63 Respiratory Rate 20 Blood Pressure Blood Pressure [Left Arm] 120/82 Pulse Ox 95 Patient had a C-reactive protein which was within normal limits and white cell count was well within normal limits. Patient with a uric acid level that was elevated to 11.7 Assessment and Plan - Assessment / Plan Additional Assessment/Plan Details: Impression: Likely left foot tophaceous gout with exacerbation of gout possible, do not suspect it and active infective issues. Plan: Patient with presentation of significant sickness question etiology whether it was secondary to his diabetes a combination of VAC gout dehydration whatever the source may be he was admitted and we will follow this along redress the foot there is really no active wound or drainage or ulcer per se. We'll watch this proceed with an MRI to see if this is any evidence of ostial myelitis and move forward from there. I think at some point time with the significant tophaceous gouty type changes we should get him set up to see if foot and ankle specialist to see what options might be available for him for removal of some of this and debridement of this my concern however is a with debridement of this the potential risk of soft tissue breakdown and exposure of an area which may not be easy to heal particularly in light of his poor control of his diabetes, peripheral neuropathy, elevated A1c and general attentiveness to his medical issues. I think there is a high risk of a complicating issue but I think this would be a reasonable step. Patient does need to get better control of his diabetes watch his diet and get appropriately treated to try and keep his uric acid level down to prevent precipitation of these potential further deposition of uric acid. Patient agrees and understands We discussed the patient's current condition and clinical findings as it pertains to the current situation. Surgical versus nonsurgical options risks a nd benefits were discussed and reviewed. Options moving forward include but are not limited to continued choice to live with their current condition; evaluate their current condition further with imaging studies and/or diagnostic testing, etc.; treat problem/problems with surgical versus nonsurgical methods. The patient demonstrates a clear understanding of our discussion. All questions were answered. - Time/Visit Time Spent With Patient: 15-25 Minutes
== END 2018-08-19 13:44 | disposition home or self-care (01) | DRG 554 ==
LOC: ER 16:21 → MED/SURG 20:01
PROVIDERS: ADMIT Internal Medicine; ATTEND Internal Medicine